=== PATIENT | female | born 1970 | race Hispanic/Latino ===

== ENCOUNTER 2017-12-11 07:57 | Outpatient (CLI) | payer OTHER ==
--- NOTE | 2017-12-11 10:25 | Mammography Report ---
BILATERAL DIGITAL SCREENING MAMMOGRAM : 12/11/17 07:57:00 CLINICAL: Routine screening. COMPARISON:None available. FINDINGS: The breasts are heterogeneously dense, which may obscure small masses. No mass, architectural distortion or suspicious calcifications. IMPRESSION: No mammographic evidence of malignancy. BI-RADS CATEGORY: 1 - - Negative RECOMMENDATION: Routine mammographic screening in one year. COMMENT: CAD was not utilized for this examination. Patient follow-up letters are generated by our [employer] application.
== END 2017-12-11 07:58 | disposition home or self-care (01) ==
LOC: SPVWC 07:57
PROVIDERS: ATTEND Internal Medicine
DX: Z12.31 Encounter for screening mammogram for malignant neoplasm of breast (principal)
CPT/HCPCS: 77067